=== PATIENT | female | born 1965 | race Caucasian/White ===

== ENCOUNTER 2017-08-03 08:53 | Day surgery (SDC) | payer BC ==
[~2017-08-03] VITALS: Ht 170.2 cm; Wt 78.0 kg
[~2017-08-03 08:53] MED LIST: FLUT.05NI; IBUP600 PO; MECL25 PO
== END 2017-08-03 10:40 | disposition home or self-care (01) ==
LOC: ORSCSDS 08:53
PROVIDERS: Internal Medicine Gastroenterology
PROC: 0DJD8ZZ Inspection of Lower Intestinal Tract, Via Natural or Artificial Opening Endoscopic (ICD-10-PCS; principal; 2017-08-03 10:00)
DX: Z12.11 Encounter for screening for malignant neoplasm of colon (principal); E78.5 Hyperlipidemia, unspecified; Z79.899 Other long term (current) drug therapy
CPT/HCPCS: J1980; J2405; J7120

== ENCOUNTER → 2022-09-06 | Outpatient (CLI) | payer BC | END | disposition home or self-care (01) | LOC: LAB 11:47 → LAB SHORT 11:47 | DX: N39.0 Urinary tract infection, site not specified (principal) | CPT/HCPCS: 87077; 87086; 87186 ==

== ENCOUNTER → 2024-08-28 | Outpatient (CLI) | payer BC | END | disposition home or self-care (01) | LOC: LAB 18:20 → LAB SHORT 18:20 | DX: N39.0 Urinary tract infection, site not specified (principal) | CPT/HCPCS: 87077; 87086; 87186 ==